=== PATIENT | male | born 1965 | race Two or more races ===

== ENCOUNTER 2018-06-08 08:05 | Inpatient (IN) | payer OTHER ==
--- NOTE | 2018-06-08 08:18 | PDOC ---
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 He denies any headache, blurred vision, numbness, weakness or any other focal neurological deficits. He reports being unable to come in earlier due to insurance issues. Denies any fevers or chills. - Physicial Exam PE: 06/08/18 10:27 GENERAL: Awake, alert, and fully oriented, in no acute distress HEAD: No signs of trauma EYES: PERRLA, EOMI, sclera anicteric, conjunctiva clear ENT: Auricles normal inspection, hearing grossly normal, nares patent, oropharynx clear without exudates. Moist mucosa NECK: Normal ROM, supple, no lymphadenopathy, JVD, or masses LUNGS: Breath sounds equal, clear to auscultation bilaterally. No wheezes, and no crackles HEART: Regular rate and rhythm, normal S1 and S2, no murmurs, rubs or gallops ABDOMEN: Soft, nontender, normoactive bowel sounds. No guarding, no rebound. No masses EXTREMITIES: Normal range of motion, no edema. No clubbing or cyanosis. No cords, erythema, or tenderness NEUROLOGICAL: Slightly slurred speech, slight left sided facial droop, 5/5 strength bilaterally. Normal gait. SKIN: Warm, Dry, normal turgor, no rashes - Medical Decision Making 06/08/18 10:30 Documentation prepared by Elvira Bray, acting as medical office asst for Gladis Mirza MD. <Elvira Bray - Last Filed: 06/08/18 10:26> - Medical Decision Making 06/11/18 09:06 Pt presents to the ED complaining of 5 days of slurred speech and very mild L facial droop. Denies other neurologic symptoms. Symptoms are concerning for CVA. Given the duration of his symptoms, he is not a candidate for TPA. Will check labs and admit to medicine. <Gladis Mirza - Last Filed: 06/11/18 09:19>
[2018-06-08] MEDS ORDERED: ASPIRIN 325 MG TABLET PO ONE (08:47)
--- NOTE | 2018-06-08 08:47 | PDOC ---
History of Present Illness - General Chief Complaint: CVA/TIA Stated Complaint: DIZZINESS/NUMBNESS ON FACE Time Seen by Provider: 06/08/18 08:17 History Source: Patient - History of Present Illness Initial Comments: 06/08/18 08:50 Patient is a 52 year old male with a PMH of untreated DM and HTN who presents with a 5 day h/o slurred speech. 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 Also c/o L sided facial fullness. Denies any head trauma as well as mental status changes, visual changes, difficulty ambulating. Notes he was evaluated at a health clinic five years previous and told he had DM and HTN but is not taking medications because he cannot afford them. Came to the ED this morning because patient's son expressed concern he might have had a stroke. Smoked 5 cigarettes daily since age 10. NKDA Surgical: denies Social: 5 cigarettes daily for 40+ years, denies alcohol, denies recreational drugs PMD: None Past History - Past Medical History Allergies/Adverse Reactions: Allergies Allergy/AdvReac Type Severity Reaction Status Date / Time No Known Allergies Allergy Verified 06/08/18 08:43 Home Medications: Ambulatory Orders NK [No Known Home Medication] 06/08/18 COPD: No Diabetes: Yes HTN: Yes - Suicide/Smoking/Psychosocial Hx Smoking History: Current every day smoker Number of Cigarettes Smoked Daily: 5 Information on smoking cessation initiated: Yes 'Breaking Loose' booklet given: 06/08/18 Hx Alcohol Use: No Drug/Substance Use Hx: No Substance Use Type: None Review of Systems - Review of Systems Constitutional: No: Chills, Fever HEENTM: No: Blurred Vision, Double Vision Respiratory: No: Cough, Shortness of Breath, Stridor, Wheezing, Hemoptysis Cardiac (ROS): No: Chest Pain, Lightheadedness, Palpitations, Syncope, Chest Tightness ABD/GI: No: Constipated, Diarrhea, Nausea, Rectal Bleeding, Vomiting : No: Burning, Dysuria Neurological: Yes: Other (5 day h/o slurred speech). No: Numbness, Tingling, Tremors, Weakness, Unsteady Gait *Physical Exam - Vital Signs Last Vital Signs Temp Pulse Resp BP Pulse Ox 97.9 F 92 H 16 164/94 98 06/08/18 08:08 06/08/18 08:08 06/08/18 08:08 06/08/18 08:08 06/08/18 08:08 - Physical Exam General Appearance: Yes: Nourished, Appropriately Dressed HEENT: positive: EOMI, KEYON Neck: positive: Trachea midline, Supple Respiratory/Chest: positive: Lungs Clear, Normal Breath Sounds. negative: Rapid RR, Crackles, Rales, Rhonchi, Wheezing Cardiovascular: positive: S1, S2. negative: Edema, JVD Vascular Pulses: Dorsalis-Pedis (R): 2+, Doralis-Pedis (L): 2+ Gastrointestinal/Abdominal: positive: Normal Bowel Sounds, Soft Musculoskeletal: negative: CVA Tenderness (R), CVA Tenderness (L) Extremity: positive: Normal Capillary Refill, Normal Inspection Integumentary: positive: Normal Color, Dry, Warm Neurologic: positive: optical effects line up person II-XII NML intact, Fully Oriented, Alert, Motor Strength 5/5, Finger to Nose (normal). negative: Facial Droop, Confused, Disoriented ED Treatment Course - LABORATORY CBC & Chemistry Diagram: 06/08/18 10:00 06/08/18 10:00 Medical Decision Making - Medical Decision Making 06/08/18 08:54 52 year old male with 5 day h/o slurred speech. VS unremarkable. NIHSS 1. Non tPA candidate given symptom duration. ED Stroke order set initiated. ASA administered. Head CT pending. 06/08/18 10:[address] negative for acute infarct. Patient reassessed @ bedside- persistent slurred speech. VS stable. Neuro paged. 06/08/18 12:05 Case d/w Dr. Miranda (Neurology) - agrees with admission and recommends MRI. Will evaluate patient. Patient admitted to hospitalist inpatient medicine service. SW consult pending. Will continue to monitor including Q1 VS. 06/08/18 12:16 Case d/w social work. Will come evaluate patient. Patient and patient's counseled on plan of care. *DC/Admit/Observation/Transfer Diagnosis at time of Disposition: Slurred speech - Referrals - Patient Instructions - Post Discharge Activity
--- NOTE | 2018-06-08 08:50 | PDOC ---
NIH Stroke Scale - Last Known Well Date/Time & Onset Date Last Known Well: 06/04/18 Time Last Known Well: 08:00 - Initial Evaluation Level of consciousness: Alert Ask patient the month and their age: Answers both correctly Ask patient to open & close eyes; make fist and let go: Obeys both correctly Best gaze (horizontal eye movement): Normal Visual field testing: No visual field loss Facial paresis (Show teeth/raise eyebrows/close eyes tight): Normal symmetrical movement Motor Function: Left Arm: Normal Motor Function: Right Arm: Normal (extends arm 90 (or 45) degrees for 10 seconds without drift Motor Function: Left Leg: Normal (extends leg 30 degrees for 5 seconds without drift) Motor Function: Right Leg: Normal (extends leg 30 degrees for 5 seconds without drift) Limb Ataxia: No ataxia Sensory(Use pinprick test arms,legs,trunk,face/side to side): Normal Best language (Describe picture, name items, read sentences): No Aphasia Dysarthria (read several words): Mild to moderate slurring of words Extinction and Inattention: No abnormality - Total Score NIH Stroke Scale Score: 1
[2018-06-08] MEDS ORDERED: ASPIRIN 81 MG CHEWABLE TABLETS ONE ×2 (09:27→09:43)
[2018-06-08] MEDS: SODIUM CHLORIDE 1,000 ML IV SCH (09:34)
[2018-06-08 10:17] LABS: BASO % 0.7 % (0-2.0); EOS % 2.5 % (0-4.5); HEMATOCRIT 46.3 % (35.4-49); HEMOGLOBIN 15.1 GM/dL (11.7-16.9); LYMPH % 51.2 % (8-40); MCH 29.2 pg (25.7-33.7); MCHC 32.6 g/dl (32.0-35.9); MEAN CELL VOLUME 89.6 fl (80-96); MEAN PLT VOLUME 10.1 fl (7.5-11.1); MONO % 9.9 % (3.8-10.2); NEUT % 35.7 % (42.8-82.8); PLATELET COUNT 191 K/MM3 (134-434); RBC 5.17 M/mm3 (4.00-5.60); WHITE BLOOD COUNT 4.8 K/mm3 (4.0-10.0)
[2018-06-08 10:18] LABS: URINE APPEARANCE CLEAR; URINE BILIRUBIN NEGATIVE (<2.0 mg/dL); URINE COLOR STRAW; URINE GLUCOSE (UA) 2+ (NEGATIVE); URINE KETONE NEGATIVE (NEGATIVE); URINE LEUK ESTERASE NEGATIVE (NEGATIVE); URINE NITRITE NEGATIVE (NEGATIVE); URINE PROTEIN NEGATIVE (NEGATIVE); URINE UROBILINOGEN NEGATIVE mg/dL (0.2-1.0)
[2018-06-08 10:28] LABS: INR 1.06 (0.83-1.09)
[2018-06-08 10:39] LABS: ANION GAP 5 MMOL/L (8-16); BLOOD UREA NITROGEN 10 mg/dL (7-18); CALCIUM 9.4 mg/dL (8.5-10.1); CHLORIDE 102 mmol/L (98-107); CHOLESTEROL 238 mg/dL (50-200); CO2 30 mmol/L (21-32); GLUCOSE,RANDOM 206 mg/dL (74-106); POTASSIUM 5.3 mmol/L (3.5-5.1); SGOT/AST 45 U/L (15-37); SGPT/ALT 63 U/L (12-78); SODIUM 137 mmol/L (136-145)
[2018-06-08 10:41] LABS: BILIRUBIN,TOTAL 0.3 mg/dL (0.2-1.0); HDL CHOLESTEROL 68 mg/dL (40-60); TOT PROT 8.4 g/dl (6.4-8.2); TRIGLYCERIDES 96 mg/dL (35-160)
[2018-06-08 10:42] LABS: ALK PHOS 90 U/L (45-117)
--- NOTE | 2018-06-08 13:03 | HP ---
CHIEF COMPLAINT: slurred speech, left arm weakness for 5 days PCP: none HISTORY OF PRESENT ILLNESS: Patient is a 52 year old male with a significant past medical history of hypertension, diabetes and smoker. He is currently not taking any medications secondary to lack of insurance. He does not have a primary care physician. He presents to the ED with his for c/o of slurred speech, left arm weakness, left facial/neck numbness than began 5 days ago and continued through today. Patient and did not seek immediate medical attention as they are uninsured and only came to the hospital on the advice of their son who noted that patient was much weaker. at the bedside and reported that patient had a recent abscess on his left cheek that began 1 week ago and both her and patient thought that the slurred speech could be due to this possible abscess. However, she noted that since last Sunday he became much weaker, fatigued. Patient does not have any teeth nor dentures and did not seek any dental follow up. He denies any headache, blurred vision, numbness, or chest pain. He reports being unable to come in earlier due to insurance issues. Denies any fevers or chills. He feels as though his left arm is weaker when compared to the right. ER course was notable for: (1) elevated BP (2) ekg nsr (3) head ct negative for acute process (4) asa in ed (5) elevated lipid panel Recent Travel: denies PAST MEDICAL HISTORY: diabetes, htn, smoker PAST SURGICAL HISTORY: denies Social History: Smoking: yes daily Alcohol: occasional Drugs: denies Family History: Allergies No Known Allergies Allergy (Verified 06/08/18 08:43) HOME MEDICATIONS: Home Medications Medication Instructions Recorded NK [No Known Home Medication] 06/08/18 PHYSICAL EXAMINATION Vital Signs - 24 hr 06/08/18 06/08/18 08:08 12:19 Temperature 97.9 F Pulse Rate 92 H Pulse Rate [ 88 Apical] Respiratory 16 18 Rate Blood Pressure 164/94 Blood Pressure 158/88 [Left Arm] O2 Sat by Pulse 98 99 Oximetry (%) GENERAL: Awake, alert, and fully oriented, in no acute distress. HEAD: Normal with no signs of trauma. EYES: right pupil less reactive, left pupil reactive to light EARS, NOSE, THROAT: Ears normal, nares patent, oropharynx clear without exudates. Moist mucous membranes. NECK: Normal range of motion, supple without lymphadenopathy, JVD, or masses. LUNGS: Breath sounds equal, clear to auscultation bilaterally. HEART: Regular rate and rhythm, ABDOMEN: Soft, nontender, not distended, normoactive bowel sounds, no guarding, no rebound, no masses. No hepatomegaly or splenomegaly. MUSCULOSKELETAL: Normal range of motion at all joints. No bony deformities or tenderness. No CVA tenderness. UPPER EXTREMITIES: 4/5 left upper ext strength, 5/5 right upper ext strength LOWER EXTREMITIES: No peripheral edema. NEUROLOGICAL: slurred speech, gait not observed PSYCHIATRIC: Cooperative. Good eye contact. Appropriate mood and affect. SKIN: Warm, dry, normal turgor, no rashes or lesions noted, normal capillary refill. Laboratory Results - last 24 hr 06/08/18 06/08/18 06/08/18 10:00 10:00 10:00 WBC 4.8 RBC 5.17 Hgb 15.1 Hct 46.3 MCV 89.6 MCH 29.2 MCHC 32.6 RDW 14.0 Plt Count 191 MPV 10.1 Absolute Neuts (auto) 1.7 Neutrophils % 35.7 L Lymphocytes % 51.2 H Monocytes % 9.9 Eosinophils % 2.5 Basophils % 0.7 Nucleated RBC % 0 PT with INR 12.00 INR 1.06 Sodium 137 Potassium 5.3 H Chloride 102 Carbon Dioxide 30 Anion Gap 5 L BUN 10 Creatinine 1.0 Creat Clearance w eGFR > 60 POC Glucometer Random Glucose 206 H Calcium 9.4 Total Bilirubin 0.3 AST 45 H ALT 63 Alkaline Phosphatase 90 Creatine Kinase 78 Troponin I < 0.02 Total Protein 8.4 H Albumin 4.0 Triglycerides 96 Cholesterol 238 H Total LDL Cholesterol 159 H HDL Cholesterol 68 H Urine Color Urine Appearance Urine pH Ur Specific [place] Urine Protein Urine Glucose (UA) Urine Ketones Urine Blood Urine Nitrite Urine Bilirubin Urine Urobilinogen Ur Leukocyte Esterase Blood Type Antibody Screen 06/08/18 06/08/18 06/08/18 10:00 10:08 10:18 WBC RBC Hgb Hct MCV MCH MCHC RDW Plt Count MPV Absolute Neuts (auto) Neutrophils % Lymphocytes % Monocytes % Eosinophils % Basophils % Nucleated RBC % PT with INR INR Sodium Potassium Chloride Carbon Dioxide Anion Gap BUN Creatinine Creat Clearance w eGFR POC Glucometer [id number] Random Glucose Calcium Total Bilirubin AST ALT Alkaline Phosphatase Creatine Kinase Troponin I Total Protein Albumin Triglycerides Cholesterol Total LDL Cholesterol HDL Cholesterol Urine Color Straw Urine Appearance Clear Urine pH 5.0 Ur Specific [place] 1.006 Urine Protein Negative Urine Glucose (UA) 2+ H Urine Ketones Negative Urine Blood Negative Urine Nitrite Negative Urine Bilirubin Negative Urine Urobilinogen Negative Ur Leukocyte Esterase Negative Blood Type O POSITIVE Antibody Screen Negative ASSESSMENT/PLAN: Patient is a 52 year old male with a significant past medical history of hypertension, diabetes and smoker. He is currently not taking any medications secondary to lack of insurance. He does not have a primary care physician. He presents to the ED with his for c/o of slurred speech, left arm weakness, left facial/neck numbness than began 5 days ago and continued through today. Patient and did not seek immediate medical attention as they are uninsured and only came to the hospital on the advice of their son who noted that patient was much weaker. Neuro: Rule out Stroke: Head CT done in the ED negative for acute process. Brain MRi ordered. Carotid and echo ordered and pending. Given ASA in ED, will continue ASA 81mg daily. Started on Lipitor 80mg @ hs. passed bedside swallow test, will order soft diet. Physical therapy requested. Neuro following. Card: Hypertension: elevated on admission, on no home meds. Started Toprol XL BID. Echo ordered . Monitor on tele. Cardiology consulted. Endocrine: Diabetes mellitus: Novolg SS, BGMs. fen tolerating PO monitor electrolytes soft diet prophy scds Visit type - Emergency Visit Emergency Visit: Yes ED Registration Date: 06/08/18 Care time: The patient presented to the Emergency Department on the above date and was hospitalized for further evaluation of their emergent condition. - New Patient This patient is new to me today: Yes Date on this admission: 06/08/18 - Critical Care Critical Care patient: No Hospitalist Screening - Colonoscopy Questionnaire Colonoscopy Questionnaire: Colonoscopy Questionnaire - Patient: 50 - 75 years old and never had a screening colonoscopy: Unknown History of colon or rectal polyps, or CA: Unknown History of IBD, Crohn's disease or UC: Unknown History of abdominal radiation therapy as a child: Unknown - Relative: 1 with colon or rectal CA, or polyps at age 60 or younger: Unknown Colon or rectal CA diagnosed at age 45 or younger: Unknown Multiple relatives with colon or rectal CA: Unknown - Outcome: Screening Result: Negative Screen
[2018-06-08 13:54] VITALS: BMI 25.7
[2018-06-08] MEDS: metoPROLOL SUCCINATE 25 MG TAB.SR.24H (FP) PO SCH ×2 (17:09→22:11)
[2018-06-08] MEDS: INSULIN SLIDING SCALE (NOVOLOG) 1 VIAL SQ SCH ×2 (17:12→22:11)
--- NOTE | 2018-06-08 18:17 | CON.NEURO ---
Consult - Alcohol/Substance Use Hx Alcohol Use: No - Smoking History Smoking history: Current every day smoker Have you smoked in the past 12 months: Yes Aproximately how many cigarettes per day: 5 Home Medications - Allergies Allergies/Adverse Reactions: Allergies Allergy/AdvReac Type Severity Reaction Status Date / Time No Known Allergies Allergy Verified 06/08/18 08:43 - Home Medications Home Medications: Ambulatory Orders NK [No Known Home Medication] 06/08/18 Physical Exam-Neuro Vital Signs: Vital Signs Temperature 98.2 F 06/08/18 13:49 Pulse Rate 81 06/08/18 13:49 Respiratory Rate 18 06/08/18 13:55 Blood Pressure 182/96 06/08/18 13:49 O2 Sat by Pulse Oximetry (%) 99 06/08/18 13:55 Labs: CBC, BMP 06/08/18 10:00 06/08/18 10:00 INR, PTT INR 1.06 (0.83-1.09) 06/08/18 10:00 Assessment/Plan cc slurring of speech HPI 52 year old male history of HTN, DM , SMOKER. He has not been taking medication . He has slurring of speech for five days. Mri showed right mca stroke. He is smoker. He was not takign any apsirin or statin at home. He denies any arm or leg weakness, no headhace, no seizure. PMH as above, SH NONE NKDA Social History , ROS FH reviewed in chart HOME MEDICATIONS: Home Medications Medication Instructions Recorded NK [No Known Home Medication] 06/08/18 Neurological Examination Alert oriented x 3 speech is dysarthric ( he do not have any teeth but as per family his speech is different now) left facial droopiness, eomi, pupils reactive 5/5 all ext no ataxia , FTN , HTS is normal sensation is normal ct head no acute findings MRI of brain showed there is right mca stroke Assessment- Right mca stroke, risk factor DM,HTN, SMOKER. Plan start aspirin and statin follow official report of mri speech therapy ( ordered) carotid ultrasound stroke education and smoking cessation Appreciate cardiology consult Thanking you so much Brigido Miranda MD
[2018-06-08] MEDS: ASPIRIN COATED 81 MG TABLET.EC PO SCH (18:39)
--- NOTE | 2018-06-08 18:54 | EKG ---
Test Reason : Blood Pressure : / mmHG Vent. Rate : 090 BPM Atrial Rate : 090 BPM P-R Int : 144 ms QRS Dur : 100 ms QT Int : 380 ms P-R-T Axes : 031 -14 -04 degrees QTc Int : 464 ms NORMAL SINUS RHYTHM INFERIOR INFARCT , AGE UNDETERMINED ABNORMAL ECG WHEN COMPARED WITH ECG OF 01-OCT-2010 09:08, INFERIOR INFARCT IS NOW PRESENT T WAVE INVERSION NOW EVIDENT IN INFERIOR LEADS NONSPECIFIC T WAVE ABNORMALITY NOW EVIDENT IN LATERAL LEADS Confirmed by FELISHA BENZ MD ([id number]) on 06/08/2018 6:54:22 PM Referred By: Confirmed By:FELISHA BENZ MD
[2018-06-08] MEDS ORDERED: INSULIN (NOVOLOG) ASPART 100 UNITS/ML 10ML VIAL ONE (22:05)
[2018-06-08] MEDS: ATORVASTATIN CA 80 MG TABLET (FP) PO SCH (22:10)
[2018-06-09] MEDS: SODIUM CHLORIDE 1,000 ML IV SCH ×2 (06:02→10:01)
[2018-06-09] MEDS: INSULIN SLIDING SCALE (NOVOLOG) 1 VIAL SQ SCH ×4 (06:02→21:51)
--- NOTE | 2018-06-09 07:38 | PN ---
Progress Note (short form) - Note Progress Note: 52 year old male history of HTN, DM , SMOKER. He has not been taking medication . He has slurring of speech for five days prior to hospital admission. Mri showed right mca stroke. He is smoker. He was not takign any apsirin or statin at home. He denies any arm or leg weakness, no headhace, no seizure. PMH as above, SH NONE NKDA Social History , ROS FH reviewed in chart HOME MEDICATIONS: Home Medications Medication Instructions Recorded NK [No Known Home Medication] 06/08/18 Neurological Examination Alert oriented x 3 speech is dysarthric ( he do not have any teeth but as per family his speech is different now) left facial droopiness, eomi, pupils reactive 5/5 all ext no ataxia , FTN , HTS is normal sensation is normal ct head no acute findings MRI of brain showed multiple right temporal and parietal lobe infarct. Assessment- Right parietal and temporal lobe infarct, seems to be one stroke as there is only one clinical event , risk factor DM,HTN, SMOKER. Plan 1.continue aspirin and statin 2. I would do mra of brain , follow up on carotid ultrasound , echo and cardiology consult 3.awaiting speech consult 4.stroke education and smoking cessation Thanking you so much Brigido Miranda MD
[2018-06-09] MEDS: ASPIRIN COATED 81 MG TABLET.EC PO SCH (10:01)
[2018-06-09] MEDS: metoPROLOL SUCCINATE 25 MG TAB.SR.24H (FP) PO SCH (10:01)
--- NOTE | 2018-06-09 10:28 | PN ---
Progress Note (short form) - Note Progress Note: Chief Complaint: Events noted, notes reviewed, left facial weakness persists, patient denies any chest pain or dyspnea History of Present Illness: Seen and examined on telemetry. Full consult dictated Medications: Current Medications Aspirin (Ecotrin -) 81 mg PO DAILY [facility] Last Admin: 06/09/18 10:01 Dose: 81 mg Atorvastatin Calcium (Lipitor -) 80 mg PO HS [facility] Last Admin: 06/08/18 22:10 Dose: 80 mg Sodium Chloride (Normal Saline -) 1,000 mls @ 42 mls/hr IV ASDIR [facility] Last Admin: 06/09/18 10:01 Dose: 42 mls/hr Insulin Aspart (Novolog Vial Sliding Scale -) 1 vial SQ ACHS [facility]; Protocol Last Admin: 06/09/18 06:02 Dose: 2 unit Metoprolol Succinate (Toprol Xl -) 25 mg PO BID [facility] Last Admin: 06/09/18 10:01 Dose: 25 mg Review of Systems - Review of Systems Constitutional: denies: Chills or Fever Cardiovascular: as noted above Gastrointestinal: denies: Nausea, Vomiting, Diarrhea, Constipation or Abdominal Pain Genitourinary: No symptoms reported Neurological: As noted above Vital Signs: Last Vital Signs Temp Pulse Resp BP Pulse Ox 98.3 F 63 18 141/78 97 06/09/18 10:00 06/09/18 10:00 06/09/18 10:00 06/09/18 10:00 06/08/18 21:00 Intake & Output 06/06/18 06/07/18 06/08/18 06/09/18 23:59 23:59 23:59 23:59 Intake Total 970 294 Balance 970 294 Weight 174 lb 4 oz Neck: Supple Negative JVD No Bruit Respiratory: Clear to A&P Cardiovascular: S1 S2 Regular Rate and Rhythm Gastrointestinal: Soft Benign Normal Bowel Sounds Ext: Negative Edema Labs: CBC, BMP 06/08/18 10:00 06/08/18 10:00 Troponin, BNP 06/08/18 06/08/18 10:00 19:55 Troponin I < 0.02 < 0.02 Hepatic Panel Total Bilirubin 0.3 mg/dL (0.2-1.0) 06/08/18 10:00 AST 45 U/L (15-37) H 06/08/18 10:00 ALT 63 U/L (12-78) 06/08/18 10:00 Alkaline Phosphatase 90 U/L (45-117) 06/08/18 10:00 Albumin 4.0 g/dl (3.4-5.0) 06/08/18 10:00 INR, PTT INR 1.06 (0.83-1.09) 06/08/18 10:00 Assessment/Plan ASSESSMENT: 1. Clinical presentation and MRI finding consistent with acute stroke/CVA, right parietal and temporal lobe infarct 2. Probable CAD abnormal EKG with no history of ACS or RI angina pectoris 3. Probable diastolic LV dysfunction with clinical class 0 NYHA classification LV failure 4. HTN, non compliant with therapy administration 5. DM, non compliant with therapy administration 6. Hypercholestrolemia, non compliant with therapy administration 7. Carotid atherosclerosis 8. Tobacco and alcohol abuse PLAN: 1. Continue B-Blockers 2. Add ACEI or ARBS unless contraindicated 3. Continue statin therapy/high dose Lipitor 4. Continue ASA 5. Await brain MRA report 6. Echocardiography for evaluation of LV size and function 7. Additional cardiovascular evaluation is to be recommended pending completion of testing including SUNDAY or extended ambulatory monitoring Patricia Nowak M.D.
[2018-06-09 11:01] LABS: BASO % 0.6 % (0-2.0); HEMATOCRIT 45.2 % (35.4-49); HEMOGLOBIN 14.4 GM/dL (11.7-16.9); LYMPH % 28.9 % (8-40); MCH 28.6 pg (25.7-33.7); MCHC 31.9 g/dl (32.0-35.9); MEAN CELL VOLUME 89.8 fl (80-96); MEAN PLT VOLUME 10.1 fl (7.5-11.1); MONO % 8.2 % (3.8-10.2); NEUT % 60.3 % (42.8-82.8); PLATELET COUNT 171 K/MM3 (134-434); RBC 5.04 M/mm3 (4.00-5.60); RDW 13.8 % (11.9-15.9); WHITE BLOOD COUNT 6.9 K/mm3 (4.0-10.0)
[2018-06-09 11:06] LABS: ALBUMIN 3.4 g/dl (3.4-5.0); ANION GAP 7 MMOL/L (8-16); BLOOD UREA NITROGEN 11 mg/dL (7-18); CALCIUM 9.1 mg/dL (8.5-10.1); CHLORIDE 104 mmol/L (98-107); CO2 28 mmol/L (21-32); GLUCOSE,RANDOM 203 mg/dL (74-106); POTASSIUM 4.5 mmol/L (3.5-5.1); SODIUM 139 mmol/L (136-145)
[2018-06-09 11:10] LABS: BILIRUBIN,TOTAL 0.7 mg/dL (0.2-1.0); CHOLESTEROL 222 mg/dL (50-200); CREATININE 0.9 mg/dL (0.7-1.3); SGOT/AST 30 U/L (15-37); SGPT/ALT 47 U/L (12-78); TOT PROT 7.3 g/dl (6.4-8.2); TRIGLYCERIDES 96 mg/dL (35-160)
[2018-06-09 11:11] LABS: ALK PHOS 79 U/L (45-117); HDL CHOLESTEROL 59 mg/dL (40-60)
[2018-06-09] MEDS: LOSARTAN POTASSIUM 25 MG TABLET PO SCH (11:23)
--- NOTE | 2018-06-09 11:37 | CONS ---
DATE OF CONSULTATION: 06/09/2018 CONSULTATION REQUESTED BY: Hospitalist CHIEF COMPLAINT: Slurred speech, left-sided facial weakness; cardiovascular evaluation. This is a 52-year-old male of [place] descent of [place] ancestry who was in usual state of health until presenting to [facility] with slurred speech, which has been noted for the last several days. Patient has known history of hypertensive cardiovascular disease, diabetes mellitus, hypercholesterolemia, and tobacco abuse. The patient has not been complaint with medical therapy administration related to insurance issues. Patient did not report any associated additional focal neurological deficits. The patient does not report any prior history of coronary artery disease or congestive heart failure, although he was noted to have an abnormal electrocardiogram on evaluation in the emergency room. The patient denies any chest discomfort. The patient denies any dyspnea, orthopnea, paroxysmal nocturnal dyspnea, or peripheral edema. The patient denies any palpitations, dizziness, lightheadedness, or syncope. The patient denies any fatigue or tiredness. The patient is a smoker and, in addition, admits to heavy alcohol intake. PAST MEDICAL HISTORY: Hypertensive cardiovascular disease, diabetes mellitus, hypercholesterolemia, currently on no medical therapy, poor compliance with medical therapy administration and medical followup; states lack of insurance. PAST SURGICAL HISTORY: None. SOCIAL HISTORY: Smoker and admits to heavy alcohol intake. FAMILY HISTORY: Positive for coronary artery disease. ALLERGIES: None reported. MEDICAL THERAPY AT HOME: None. MEDICAL THERAPY CURRENTLY: Aspirin 81 mg once a day; Lipitor 80 mg once a day; insulin coverage; Toprol-XL 25 mg twice daily. REVIEW OF SYSTEMS: Head/Neck: He denies headache, photophobia, blurring of vision. Respiratory: No cough or sputum production. Cardiovascular: As noted above. Gastrointestinal: He denies nausea, vomiting, diarrhea, abdominal discomfort. Genitourinary: No symptoms reported. Musculoskeletal: No symptoms reported. PHYSICAL EXAMINATION: Vital Signs: Blood pressure is 141/78 mmHg, pulse rate is 63 beats/min. Head/Neck: Pupils are equal and reactive to light and accommodation. Extraocular muscles are intact. Anicteric sclerae. Negative JVD. No bruit appreciated. Chest: Clear to auscultation and percussion. Cardiovascular: S1, S2, regular. No murmur, clicks, or gallops. Abdomen: Soft, benign, normoactive bowel sounds. Extremities: Negative edema. Intact distal pulses. No calf tenderness. Electrocardiogram reveals sinus rhythm. Cannot exclude inferior wall myocardial infarction, age undetermined. Chest x-ray report was noted. CT scan of the head report was noted. MRI of the brain report was noted. Carotid Doppler studies revealed mild atherosclerotic plaque bilaterally. CBC revealed a white cell count of 4.8, hemoglobin of 15.1, platelet count 191. Basic metabolic profile reveals sodium 137, potassium 5.3, BUN of 10, creatinine 1.0, glucose 206. Troponin less than 0.02. AST 45, ALT 63. ASSESSMENT: 1. Clinical presentation and MRI findings consistent with acute stroke, cerebrovascular accident, right parietal and temporal lobe infarct. 2. Probable coronary artery disease, abnormal EKG with no history of acute coronary syndrome or myocardial infarction, angina pectoris. 3. Probable diastolic left ventricular dysfunction with clinical class zero [place] Heart [employer] Classification left ventricular failure. 4. Hypertensive cardiovascular disease, noncompliant with therapy administration. 5. Diabetes mellitus, noncompliant with therapy administration. 6. Hypercholesterolemia, noncompliant with therapy administration. 7. Carotid atherosclerosis. 8. History of tobacco and alcohol abuse. RECOMMENDATIONS: 1. Continuation of beta eduin therapy. 2. Addition of JACQUIE inhibitors or angiotensin receptor eduin therapy, unless contraindicated. 3. Continuation of statin therapy, high-dose Lipitor. 4. Continuation of aspirin. 5. Await brain MRA report, performed earlier today. 6. Echocardiography for evaluation of left ventricular size and systolic function, considering the above-noted abnormal EKG. 7. Additional cardiovascular evaluation is to be recommended, pending completion of above testing, including possible SUNDAY or extended ambulatory monitoring. Thank you for the kind referral. SLICK ADEN M.D. [id number]
--- NOTE | 2018-06-09 14:20 | PN ---
Physical Exam: SUBJECTIVE: Patient seen and examined at the bedside. Denies any difficulty with soft diet, or swallowing. Ambulating to bathroom. OBJECTIVE: brain mri with mra pending Vital Signs Period Temp Pulse Resp BP Sys/Dewey Pulse Ox Last 24 Hr 98.1 F-98.8 F 63-74 18-20 141-156/69-86 97-98 GENERAL: Awake, alert, and fully oriented, in no acute distress. HEAD: Normal with no signs of trauma. EYES: right pupil less reactive, left pupil reactive to light EARS, NOSE, THROAT: Ears normal, nares patent, oropharynx clear without exudates. Moist mucous membranes. NECK: Normal range of motion, supple without lymphadenopathy, JVD, or masses. LUNGS: Breath sounds equal, clear to auscultation bilaterally. HEART: Regular rate and rhythm, ABDOMEN: Soft, nontender, not distended, normoactive bowel sounds, no guarding, no rebound, no masses. No hepatomegaly or splenomegaly. MUSCULOSKELETAL: Normal range of motion at all joints. No bony deformities or tenderness. No CVA tenderness. UPPER EXTREMITIES: 4/5 left upper ext strength, 5/5 right upper ext strength LOWER EXTREMITIES: No peripheral edema. NEUROLOGICAL: slurred speech, gait not observed PSYCHIATRIC: Cooperative. Good eye contact. Appropriate mood and affect. SKIN: Warm, dry, normal turgor, no rashes or lesions noted, normal capillary refill. Laboratory Results - last 24 hr 06/08/18 06/08/18 06/08/18 13:45 17:08 19:55 WBC RBC Hgb Hct MCV MCH MCHC RDW Plt Count MPV Absolute Neuts (auto) Neutrophils % Lymphocytes % Monocytes % Eosinophils % Basophils % Nucleated RBC % Sodium Potassium Chloride Carbon Dioxide Anion Gap BUN Creatinine Creat Clearance w eGFR POC Glucometer 183 Random Glucose Hemoglobin A1c % Calcium Magnesium Total Bilirubin AST ALT Alkaline Phosphatase Troponin I < 0.02 Total Protein Albumin Triglycerides Cholesterol Total LDL Cholesterol HDL Cholesterol Blood Type O POSITIVE 06/08/18 06/09/18 06/09/18 22:10 06:01 09:30 WBC RBC Hgb Hct MCV MCH MCHC RDW Plt Count MPV Absolute Neuts (auto) Neutrophils % Lymphocytes % Monocytes % Eosinophils % Basophils % Nucleated RBC % Sodium Potassium Chloride Carbon Dioxide Anion Gap BUN Creatinine Creat Clearance w eGFR POC Glucometer 150 181 Random Glucose Hemoglobin A1c % 8.6 H Calcium Magnesium Total Bilirubin AST ALT Alkaline Phosphatase Troponin I Total Protein Albumin Triglycerides Cholesterol Total LDL Cholesterol HDL Cholesterol Blood Type 06/09/18 06/09/18 06/09/18 10:00 10:00 11:21 WBC 6.9 RBC 5.04 Hgb 14.4 Hct 45.2 MCV 89.8 MCH 28.6 MCHC 31.9 L RDW 13.8 Plt Count 171 MPV 10.1 Absolute Neuts (auto) 4.2 Neutrophils % 60.3 D Lymphocytes % 28.9 D Monocytes % 8.2 Eosinophils % 2.0 Basophils % 0.6 Nucleated RBC % 0 Sodium 139 Potassium 4.5 Chloride 104 Carbon Dioxide 28 Anion Gap 7 L BUN 11 Creatinine 0.9 Creat Clearance w eGFR > 60 POC Glucometer 212 Random Glucose 203 H Hemoglobin A1c % Calcium 9.1 Magnesium 2.0 Total Bilirubin 0.7 AST 30 D ALT 47 D Alkaline Phosphatase 79 D Troponin I < 0.02 Total Protein 7.3 Albumin 3.4 Triglycerides 96 Cholesterol 222 H Total LDL Cholesterol 152 H HDL Cholesterol 59 Blood Type Active Medications Generic Name Dose Route Start Last Admin Trade Name Gunnarq PRN Reason Stop Dose Admin Aspirin 81 mg 06/08/18 18:15 06/09/18 10:01 Ecotrin - PO 81 mg DAILY RONNA Administration Atorvastatin Calcium 80 mg 06/08/18 22:00 06/08/18 22:10 Lipitor - PO 80 mg HS RONNA Administration Insulin Aspart 1 vial 06/08/18 16:30 06/09/18 11:23 Novolog Vial Sliding Scale - SQ 4 unit ACHS RONNA Administration Protocol Losartan Potassium 25 mg 06/09/18 11:00 06/09/18 11:23 Cozaar - PO 25 mg DAILY RONNA Administration Metoprolol Succinate 50 mg 06/10/18 10:00 Toprol Xl - PO DAILY RONNA ASSESSMENT/PLAN: Patient is a 52 year old male with a significant past medical history of hypertension, diabetes and smoker. He is currently not taking any medications secondary to lack of insurance. He does not have a primary care physician. He presents to the ED with his for c/o of slurred speech, left arm weakness, left facial/neck numbness than began 5 days ago and continued through today. Patient and did not seek immediate medical attention as they are uninsured and only came to the hospital on the advice of their son who noted that patient was much weaker. Imaging: -head ct 8/25: negative for acute process -brain mri 06/08: 1. multiple small acute non hemorrhagic infarctions right temporal and right parietal lobes with no evidence of underlying neoplasm. 2. no evidence of acute intracerebral hemorrhage, subdural fluid collection or hyrdrocephalus. 3. few benign non specific are of gliosis in the white matter of both cerebral hemispheres in the perventicular distribution which may be sequela of demyelination or old small vessel infarcts. -carotid doppler: no evidence of high grade stenosis or occlusion. mild carotid arterial stenosis less than 50%. Neuro: Stroke, acute Head CT done in the ED negative for acute process. Brain MRI shows multiple small acute non hemorrhagic infarctions in the right temporal and right parietal lobes. Carotid doppler with no evidence of high grade stenosis/ occlusion. On ASA, high dose lipitor. Awaiting bedside swallow test, echo and physical therapy assessment. Brain MRI with MRA pending. Card: Hypertension: elevated on admission, on no home meds. on Toprol XL daily and Cozaar. Echo ordered. Monitor on tele. Cardiology following. Endocrine: Diabetes mellitus: Novolg SS, BGMs. psyche: Currently daily smoker. counseled on cessation, refusing nicotine patch. States he smokes about 1/2 pack per day, sometimes more. Discussed importance of stopping for his health and also cost effectiveness. fen tolerating PO monitor electrolytes soft diet prophy scds Disposition: Pending echo, physical therapy, swallow eval and official read of brain mri/ mra. On discharge will need a follow up clinic appointment as well as have his medications called into to [place] pharmacy that may offer patient a discount as he is paying out of pocket. Visit type - Emergency Visit Emergency Visit: Yes ED Registration Date: 06/08/18 Care time: The patient presented to the Emergency Department on the above date and was hospitalized for further evaluation of their emergent condition. - New Patient This patient is new to me today: No - Critical Care Critical Care patient: No - Discharge Referral Referred to [facility] Med P.C.: No
[2018-06-09] MEDS ORDERED: INSULIN (NOVOLOG) ASPART 100 UNITS/ML 10ML VIAL ONE (21:46)
[2018-06-09] MEDS: ATORVASTATIN CA 80 MG TABLET (FP) PO SCH (21:51)
[2018-06-10] MEDS: INSULIN SLIDING SCALE (NOVOLOG) 1 VIAL SQ SCH ×2 (06:21→12:50)
[2018-06-10] MEDS ORDERED: INSULIN (NOVOLOG) ASPART 100 UNITS/ML 10ML VIAL ONE ×3 (06:25→12:54)
[2018-06-10 07:03] LABS: BASO % 0.7 % (0-2.0); EOS % 2.1 % (0-4.5); HEMATOCRIT 46.4 % (35.4-49); HEMOGLOBIN 14.9 GM/dL (11.7-16.9); LYMPH % 38.8 % (8-40); MCH 28.8 pg (25.7-33.7); MEAN PLT VOLUME 10.2 fl (7.5-11.1); MONO % 9.1 % (3.8-10.2); NEUT % 49.3 % (42.8-82.8); PLATELET COUNT 178 K/MM3 (134-434); RBC 5.15 M/mm3 (4.00-5.60); RDW 14.1 % (11.9-15.9); WHITE BLOOD COUNT 7.9 K/mm3 (4.0-10.0)
[2018-06-10 07:27] LABS: ALBUMIN 3.6 g/dl (3.4-5.0); ANION GAP 9 MMOL/L (8-16); BLOOD UREA NITROGEN 13 mg/dL (7-18); CALCIUM 9.1 mg/dL (8.5-10.1); CHLORIDE 103 mmol/L (98-107); CO2 27 mmol/L (21-32); GLUCOSE,RANDOM 185 mg/dL (74-106); POTASSIUM 4.3 mmol/L (3.5-5.1); SGPT/ALT 44 U/L (12-78); SODIUM 139 mmol/L (136-145)
[2018-06-10 07:30] LABS: ALK PHOS 83 U/L (45-117); BILIRUBIN,TOTAL 0.7 mg/dL (0.2-1.0); CREATININE 1.1 mg/dL (0.7-1.3); SGOT/AST 25 U/L (15-37); TOT PROT 7.7 g/dl (6.4-8.2)
--- NOTE | 2018-06-10 07:53 | PN ---
Progress Note (short form) - Note Progress Note: Chief Complaint: Events noted, notes reviewed, left facial weakness persists and slurred speech persists, patient denies any chest pain or dyspnea History of Present Illness: Seen and examined on telemetry. Events noted, notes reviewed, left facial weakness persists and slurred speech persists, patient denies any chest pain or dyspnea Medications: Current Medications Aspirin (Ecotrin -) 81 mg PO DAILY [facility] Last Admin: 06/09/18 10:01 Dose: 81 mg Atorvastatin Calcium (Lipitor -) 80 mg PO HS [facility] Last Admin: 06/09/18 21:51 Dose: 80 mg Insulin Aspart (Novolog Vial Sliding Scale -) 1 vial SQ ACHS [facility]; Protocol Last Admin: 06/10/18 06:21 Dose: 2 unit Losartan Potassium (Cozaar -) 25 mg PO DAILY [facility] Last Admin: 06/09/18 11:23 Dose: 25 mg Metoprolol Succinate (Toprol Xl -) 50 mg PO DAILY [facility] Review of Systems - Review of Systems Constitutional: denies: Chills or Fever Cardiovascular: As noted above Gastrointestinal: denies: Nausea, Vomiting, Diarrhea, Constipation or Abdominal Pain Genitourinary: No symptoms reported Neurological: As noted above Vital Signs: Last Vital Signs Temp Pulse Resp BP Pulse Ox 98.3 F 72 20 145/86 100 06/10/18 06:00 06/10/18 06:00 06/10/18 06:00 06/10/18 06:00 06/09/18 21:00 Intake & Output 06/07/18 06/08/18 06/09/18 06/10/18 23:59 23:59 23:59 23:59 Intake Total 970 1014 Balance 970 1014 Weight 174 lb 4 oz 173 lb Neck: Supple Negative JVD No Bruit Respiratory: Clear to A&P Cardiovascular: S1 S2 Regular Rate and Rhythm Gastrointestinal: Soft Benign Normal Bowel Sounds Ext: Negative Edema Labs: CBC, BMP 06/10/18 06:15 06/10/18 06:15 Hepatic Panel Total Bilirubin 0.7 mg/dL (0.2-1.0) 06/10/18 06:15 AST 25 U/L (15-37) 06/10/18 06:15 ALT 44 U/L (12-78) 06/10/18 06:15 Alkaline Phosphatase 83 U/L (45-117) 06/10/18 06:15 Albumin 3.6 g/dl (3.4-5.0) 06/10/18 06:15 INR, PTT INR 1.06 (0.83-1.09) 06/08/18 10:00 Assessment/Plan ASSESSMENT: 1. Clinical presentation and MRI finding consistent with acute stroke/CVA, right parietal and temporal lobe infarct 2. Probable CAD abnormal EKG with no history of ACS or WA angina pectoris 3. Probable diastolic LV dysfunction with clinical class 0 NYHA classification LV failure 4. HTN, non compliant with therapy administration 5. DM, non compliant with therapy administration 6. Hypercholestrolemia, non compliant with therapy administration 7. Carotid atherosclerosis 8. Tobacco and alcohol abuse PLAN: 1. Continue Toprol XL 2. Continue Cozaar 3. Continue Lipitor 4. Continue ASA 5. Await brain MRA report, still pending 6. Await echocardiography for evaluation of LV size and function 7. As outlined in yesterday's note additional cardiovascular evaluation is to be recommended pending completion of testing including SUNDAY or extended ambulatory monitoring if embolic stroke is a suspect Patricia Nowak M.D.
--- NOTE | 2018-06-10 09:14 | PN ---
Progress Note (short form) - Note Progress Note: 52 year old male history of HTN, DM , SMOKER. He has not been taking medication . He has slurring of speech for five days prior to hospital admission. Mri showed right mca stroke. He is smoker. He was not takign any apsirin or statin at home. He denies any arm or leg weakness, no headhace, no seizure. SUBJECTIVE: He is doing better and speech is better. Neurological Examination Alert oriented x 3 speech is dysarthric ( he do not have any teeth but as per family his speech is different now) left facial droopiness, eomi, pupils reactive 5/5 all ext no ataxia , FTN , HTS is normal sensation is normal ct head no acute findings MRI of brain showed multiple right temporal and parietal lobe infarct. mra of brain is pending. carotid ultrasound was unremarkable Assessment- Right parietal and temporal lobe infarct, , risk factor DM,HTN, SMOKER. Clini Plan 1.continue aspirin and statin 2. cardiology consult appreciated 3. mra report is pending 4.stroke education and smoking cessation, follow up outpatient Thanking you so much Brigido Miranda MD
[2018-06-10] MEDS: LOSARTAN POTASSIUM 25 MG TABLET PO SCH (09:54)
[2018-06-10] MEDS: ASPIRIN COATED 81 MG TABLET.EC PO SCH (09:54)
--- NOTE | 2018-06-10 10:51 | CONSULT ---
Admitting History and Physical - Primary Care Physician PCP: Alva Hyde - Admission History of Present Illness: Patient is a 52 year old male with a significant past medical history of hypertension, diabetes and smoker. Pt presented to the ED with his for c/o of slurred speech, left arm weakness, left facial/neck numbness than began 5 days before admission. Imaging: -head ct 06/08: negative for acute process -brain mri 06/08: 1. multiple small acute non hemorrhagic infarctions right temporal and right parietal lobes with no evidence of underlying neoplasm. 2. no evidence of acute intracerebral hemorrhage, subdural fluid collection or hyrdrocephalus. 3. few benign non specific are of gliosis in the white matter of both cerebral hemispheres in the perventicular distribution which may be sequela of demyelination or old small vessel infarcts. -carotid doppler: no evidence of high grade stenosis or occlusion. mild carotid arterial stenosis less than 50%. Selected Entries 06/09/18 06/09/18 06/09/18 02:00 09:30 10:00 Breakfast 100% Lunch Supper Temperature 98.2 F 98.3 F 06/09/18 06/09/18 06/09/18 13:30 16:30 18:30 Breakfast Lunch 100% Supper 100% Temperature 98.0 F 97.3 F L 06/09/18 06/10/18 06/10/18 20:00 01:54 06:00 Breakfast Lunch Supper Temperature 98.2 F 98.1 F 98.3 F Laboratory Tests 06/10/18 06:15 WBC 7.9 History Source: Patient, Family Member Limitations to Obtaining History: No Limitations - Smoking History Smoking history: Current every day smoker Have you smoked in the past 12 months: Yes Aproximately how many cigarettes per day: 5 - Alcohol/Substance Use Hx Alcohol Use: No - Social History Occupation: security History - Admission Reason For Visit: SLURRED SPEECH - Diagnostics X-ray: Report Reviewed CT Scan: Report Reviewed MRI: Report Reviewed - General Mental Status: Alert and Oriented, Awake and Alert, Able to Follow Commands Attention: Intact Head/Neck Control: WFL - Hearing Hearing: Normal Speech Evaluation - Communication Primary Language: BENGALI Communication: Yes: Dysarthria Oral Expression Ability: Yes: Mild Impairment - Speech Production Able to Make Needs Known: Yes: WNL Intelligibility: Yes: Mildly Impaired - Speech Characteristics Voice Loudness: Normal Voice Pitch: Yes: Normal Voice Phonatory-based Quality: Yes: Normal Nasal Resonance: Normal Articulation: Yes: Imprecise Rate of Speech: Too Fast - Language/Auditory Comprehension Follows: Yes: 2 Stage Simple Commands - Language/Verbal Expression Able to Respond to Simple Queries: Yes: WNL Able to Communicate Wants and Needs: Yes: WNL Functional Communication Status: Yes: WNL - Memory/Perception terminal operations manager Memory: Yes: WNL Short Term Memory: Yes: WNL - Swallow Evaluation/Bedside Assessment Current Nutritional Intake: Soft, Thin Liquids Oral Secretions: Yes: WFL Dentition: Yes: Edentulous Facial Symmetry at Rest: Facial Droop Left Facial Symmetry on Retraction: Symmetrical Facial Movement: Controlled Against Resistance Opening: Normal Against Resistance Closing: Normal Pucker Lips: Normal Lingual Movement: Normal, Symmetric Lingual Speed of Movement: Normal Lingual Movement Strgth Against Opposition: Normal Lingual Movement Characteristics: Normal Velopharyngeal Movement: Normal Laryngeal Elevation: WFL Laryngeal Movement: Able to Palpate Rate of Intake: WFL Bolus Size: WFL Labial Seal: WFL Chewing: WFL Oral Prep Time: WFL A-P Transit: WFL Pocketing: None Timing of Swallow: WFL Coughing/Throat Clear: No Change in Voice: No Recommendations - Speech Evaluation, Impression/Plan Impression: Mild Dysarthria with imprecise articulation. Improved intelligibilty when told to exaggerate pronunciation and slow speech rate. Swallowing intact. 3 oz water test (-) - Dysphagia Impressions/Plan Swallowing Skills: WF Dysphagia Impressions: No Impairment *Silent aspiration: cannot be R/O at bedside Recommendations: Other (Pt to practice reading and speaking slowly with exaggerated pronunciation. OME) - Recommendations Diet Consistency: Other (Very soft, easy to chew) Medication Administration: Whole with water Liquids: Thin Liquids
--- NOTE | 2018-06-10 10:52 | ECHO ---
Name: ADWOA JACKSON Exam:Adult Echocardiogram Study Date: 06/10/2018 08:07 AM Age: 52 yrs Reason For Study: DIZZINESS Height: 69 in Weight: 179 lb BSA: 2.0 m2 MMode/2D Measurements & Calculations IVSd: 0.84 cm Ao root diam: 2.8 cm LVIDd: 5.1 cm LA dimension: 3.7 cm LVIDs: 3.5 cm LVPWd: 0.91 cm EDV(Teich): 124.1 ml ESV(Teich): 50.5 ml Doppler Measurements & Calculations MV E max rodrigo: 74.2 cm/sec AI P1/2t: 1176 msec MV A max rodrigo: 64.5 cm/sec MV E/A: 1.2 MV dec time: 0.39 sec AI max rodrigo: 333.9 cm/sec MR max rodrigo: 324.3 cm/sec AI max P.6 mmHg MR max P.1 mmHg AI dec slope: 83.1 cm/sec2 Med Peak E' Rodrigo: 5.7 cm/sec PI Vmax: 161.5 cm/sec Med E/e': 13.1 Lat Peak E' Rodrigo: 14.1 cm/sec Lat E/e': 5.2 Procedure The study was technically difficult with many images being suboptimal in quality. Left Ventricle The left ventricle is normal in size. Left ventricular systolic function is borderline reduced. Eject ion Fraction = 50-55%. Left Ventricular Filling pattern is normal for age. Regional wall motion abnormali ties cannot be excluded due to limited visualization. Right Ventricle The right ventricle is normal in size and function. A moderator band is seen in the right ventricle. Atria Normal left and right atrial size and function. Mitral Valve There is mild mitral valve thickening. The mitral valve is grossly normal. There is trace mitral regurgitation. Tricuspid Valve The tricuspid valve is not well visualized, but is grossly normal. There is trace tricuspid regurgita tion. There was insufficient TR detected to calculate RV systolic pressure. Aortic Valve The aortic valve opens well. The aortic valve is trileaflet. Trace to mild aortic regurgitation. Pulmonic Valve The pulmonic valve is not well visualized. Trace pulmonic valvular regurgitation. Great Vessels The aortic root is normal size. Pericardium/Pleura There is no pericardial effusion. Interpretation Summary There is no comparison study available. No cardiac source of emboli noted. There is trace mitral regurgitation. Trace pulmonic valvular regurgitation. Left ventricular systolic function is borderline reduced. The right ventricle is normal in size and function. Ejection Fraction = 50-55%. There is trace tricuspid regurgitation. Artem Cartwright MD 06/10/2018 10:49 AM
--- NOTE | 2018-06-10 13:11 | DS ---
Physical Exam: SUBJECTIVE: Patient seen and examined. He is feeling well, no current complaints of dizziness, fever, sob, cp, numbness and weakness, and daughter at bedside. OBJECTIVE: Vital Signs Period Temp Pulse Resp BP Sys/Dewey Pulse Ox Last 24 Hr 97.3 F-98.3 F 60-75 18-20 118-145/71-86 100 PE Neuro: alert, awake, cn 2-12intact, slight dysarthria , left facial droop, 5/5 motor, sensory Heent: no teeth Pulm: CTAB CV: s1 s2 bradycardia no mrg Abd: s nt nd + bs Ext: no le edema, no gait instability Laboratory Results - last 24 hr 06/09/18 06/09/18 06/10/18 16:56 21:50 06:15 WBC 7.9 RBC 5.15 Hgb 14.9 Hct 46.4 MCV 90.0 MCH 28.8 MCHC 32.0 RDW 14.1 Plt Count 178 MPV 10.2 Absolute Neuts (auto) 3.9 Neutrophils % 49.3 Lymphocytes % 38.8 D Monocytes % 9.1 Eosinophils % 2.1 Basophils % 0.7 Nucleated RBC % 0 Sodium Potassium Chloride Carbon Dioxide Anion Gap BUN Creatinine Creat Clearance w eGFR POC Glucometer 196 143 Random Glucose Calcium Total Bilirubin AST ALT Alkaline Phosphatase Total Protein Albumin 06/10/18 06/10/18 06/10/18 06:15 06:20 11:31 WBC RBC Hgb Hct MCV MCH MCHC RDW Plt Count MPV Absolute Neuts (auto) Neutrophils % Lymphocytes % Monocytes % Eosinophils % Basophils % Nucleated RBC % Sodium 139 Potassium 4.3 Chloride 103 Carbon Dioxide 27 Anion Gap 9 BUN 13 Creatinine 1.1 Creat Clearance w eGFR > 60 POC Glucometer 177 296 Random Glucose 185 H Calcium 9.1 Total Bilirubin 0.7 AST 25 ALT 44 Alkaline Phosphatase 83 Total Protein 7.7 Albumin 3.6 HOSPITAL COURSE: Date of Admission:06/08/18 Date of Discharge: 06/10/18 Minutes to complete discharge: 37 Discharge Summary Reason For Visit: SLURRED SPEECH Current Active Problems Slurred speech (Acute) Hospital Course: Initial Hospital Course: Briefly, this 52 year old male with pmhx of HTN, DM II, active smoker presented to the ED with his for c/o of slurred speech, left arm weakness, left facial/neck numbness that began 5 days ago. Patient and did not seek immediate medical attention as they are uninsured and only came to the hospital on the advice of their son who noted that patient was much weaker. Pt not taking medications secondary to lack of insurance Imaging: - Brain mri 06/08: 1. multiple small acute non hemorrhagic infarctions right temporal and right parietal lobes with no evidence of underlying neoplasm. 2. no evidence of acute intracerebral hemorrhage, subdural fluid collection or hyrdrocephalus. 3. few benign non specific are of gliosis in the white matter of both cerebral hemispheres in the perventicular distribution which may be sequela of demyelination or old small vessel infarcts. -carotid doppler: no evidence of high grade stenosis or occlusion. mild carotid arterial stenosis less than 50%. Subsequent Hospital Course/Progress Note/DC summary: Plan: 1. 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 PT will follow up with Neurology this week for continued work up and referral to [facility] for Neuroradiology referral. No vascular interventions at this time - Home with ASA, lipitor 80mg HS - Started toprol 50mg daily - Started cozaar - ECHO LVSF borderline reduced, ef 50-55% 2. HTN - Meds above 3. DM II - Pt aware of diagnosis, metformin prescribed along with counselling on diet and exercise, pt aware 4. Smoking - Nicotine patch, cessation counseling completed Dispo: - Home with above meds, plan, and follow up - Pt and family aware and agree to above plan Condition: Stable - Instructions Diet, Activity, Other Instructions: Please return to the ED for any new, persistent, or worsening symptoms. Follow up with your PCP in 1 week. (referral enclosed) Follow up with Neurology Dr. Miranda (referral enclosed) this week for continued work up and referral to [facility] for neuroradiology Take new medications as directed Referrals: Brigido Miranda MD [Staff Physician] - Neftaly Mcconnell MD [Staff Physician] - Patricia Nowak MD [Staff Physician] - Disposition: HOME - Home Medications Comprehensive Discharge Medication List: Ambulatory Orders Aspirin Coated [Ecotrin -] 81 mg PO DAILY #30 tablet.ec 06/10/18 Atorvastatin Ca [Lipitor] 80 mg PO HS #30 tablet 06/10/18 Losartan Potassium [Cozaar -] 25 mg PO DAILY #30 tablet 06/10/18 Metoprolol Succinate [Toprol XL -] 50 mg PO DAILY #30 tab.sr.24h 06/10/18 Nicotine Patch [Nicoderm Patch -] 1 patch TD DAILY #30 patch 06/10/18 metFORMIN HCL [Metformin HCl] 500 mg PO BID #60 tablet 06/10/18 This patient is new to me today: Yes Date on this admission: 06/10/18 Emergency Visit: Yes ED Registration Date: 06/08/18 Care time: The patient presented to the Emergency Department on the above date and was hospitalized for further evaluation of their emergent condition. Critical Care patient: No - Discharge Referral Referred to [facility] No
[2018-06-10 14:31] VITALS: BP 117/70; PULSE 58; TEMP 98.4
[2018-06-11] MEDS ORDERED: ENOXAPARIN NA (PORCINE) 40 MG/0.4 ML DISP.SYRIN SQ SCH (10:00)
== END 2018-06-10 14:28 | disposition home or self-care (01) | DRG 45 ==
LOC: JER 08:05 → JERBED 11:29 → J4S 13:05
PROVIDERS: ADMIT Internal Medicine; ATTEND Nurse Practitioner Acute Care
DX: I63.9 Cerebral infarction, unspecified (principal); R47.81 Slurred speech; I10 Essential (primary) hypertension; E11.9 Type 2 diabetes mellitus without complications; F17.210 Nicotine dependence, cigarettes, uncomplicated; R29.701 NIHSS score 1; G81.94 Hemiplegia, unspecified affecting left nondominant side; I65.29 Occlusion and stenosis of unspecified carotid artery
CPT/HCPCS: 36415; 70450-TC; 70544-TC; 70551-TC; 71045-TC-FY; 80053; 80061; 81003; 82465; 82550; 82962; 83036; 83718; 83721; 83735; 84478; 84484; 85025; 85610; 86850; 86900; 86901; 93005; 93010; 93306-TC; 93880-TC; 97116-GP; 97161-GP; 99283-25; J7030

== ENCOUNTER 2022-08-04 12:07 | Emergency (ER) | payer OTHER ==
[2022-08-04 12:21] VITALS: BP 158/86; PULSE 96; RESP 18; TEMP 98.1; BMI 26.6
[2022-08-04 12:59] LABS: EOS % 0.5 % (0-4.5); HEMATOCRIT 48.5 % (35.4-49); LYMPH % 43.4 % (8-40); MCH 28.6 pg (25.7-33.7); MEAN CELL VOLUME 86.8 fl (80-96); MEAN PLT VOLUME 8.4 fl (7.5-11.1); MONO % 8.8 % (3.8-10.2); NEUT % 46.3 % (42.8-82.8); PLATELET COUNT 200 10^3/uL (134-434); RBC 5.59 M/mm3 (4.00-5.60); RDW 13.6 % (11.9-15.9)
[2022-08-04 13:05] LABS: INR 0.98 (0.83-1.09); PROTHROMBIN TIME (PATIENT) 11.3 SEC (9.7-13.0)
[2022-08-04 13:08] LABS: ACTIVATED PTT 35.8 SECONDS (25.2-36.5)
[2022-08-04 13:22] LABS: CHLORIDE 97 mmol/L (98-107); SODIUM 133 mmol/L (136-145)
[2022-08-04 13:27] LABS: ALBUMIN 4.1 g/dl (3.4-5.0); ANION GAP 10 MMOL/L (8-16); BLOOD UREA NITROGEN 9.9 mg/dL (7-18); CALCIUM 9.5 mg/dL (8.5-10.1); CO2 25 mmol/L (21-32); GLUCOSE,RANDOM 306 mg/dL (74-106)
[2022-08-04 13:30] LABS: SGPT/ALT 81 U/L (13-61)
[2022-08-04 13:31] LABS: SGOT/AST 54 U/L (15-37)
[2022-08-04 13:32] LABS: BILIRUBIN,TOTAL 0.3 mg/dL (0.2-1); TOT PROT 8.6 g/dl (6.4-8.2)
[2022-08-04 13:33] LABS: ALK PHOS 75 U/L (45-117)
[2022-08-04] MEDS ORDERED: ASPIRIN 81 MG CHEWABLE TABLETS PO ONE (14:18)
[2022-08-04] MEDS ORDERED: ATORVASTATIN CA 80 MG TABLET (FP) PO ONE (14:19)
[2022-08-04] MEDS ORDERED: ATORVASTATIN CA 80 MG TABLET (FP) ONE (14:44)
[2022-08-04] MEDS ORDERED: ASPIRIN 81 MG CHEWABLE TABLETS ONE (14:44)
== END 2022-08-04 15:03 | disposition left against medical advice (07) ==
LOC: JER 12:07
DX: G45.9 Transient cerebral ischemic attack, unspecified (principal)
CPT/HCPCS: 36415; 70450-TC; 70496-TC; 70498-TC; 71045-TC-FY; 80053; 80307; 82550; 82962; 84484; 85025; 85610; 85730; 86850; 86900; 86901; 93005; 93010; 99285-25; Q9967

== ENCOUNTER 2023-12-25 09:18 | Observation (INO) | payer BC, OTHER ==
[2023-12-25 09:32] VITALS: BMI 25.1
[2023-12-25 10:31] LABS: VENOUS BASE EXCESS 1.1 mmol/L (-2-2); VENOUS O2 SATURATION 29.9 % (70-80); VENOUS PH 7.382 (7.310-7.410)
[2023-12-25 10:33] LABS: BASO % 1.3 % (0-2.0); EOS % 0.7 % (0-4.5); HEMATOCRIT 46.4 % (35.4-49); LYMPH % 41.4 % (8-40); MCH 28.8 pg (25.7-33.7); MCHC 32.3 g/dl (32.0-35.9); MEAN CELL VOLUME 89.2 fl (80-96); MEAN PLT VOLUME 8.2 fl (7.5-11.1); MONO % 9.9 % (3.8-10.2); NEUT % 46.7 % (42.8-82.8); PLATELET COUNT 205 10^3/uL (134-434); RDW 13.9 % (11.9-15.9); WHITE BLOOD COUNT 5.1 K/mm3 (4.0-10.0)
[2023-12-25] MEDS ORDERED: amLODIPine BESYLATE 2.5 MG TABLET (FP) ONE (10:53)
[2023-12-25] MEDS ORDERED: MECLIZINE HCL 25 MG TABLET (FP) ONE (10:53)
[2023-12-25 11:00] LABS: POTASSIUM 4.2 mmol/L (3.5-5.1)
[2023-12-25 11:01] LABS: CALCIUM 9.1 mg/dL (8.5-10.1)
[2023-12-25 11:03] LABS: ALBUMIN 3.6 g/dl (3.4-5.0); BLOOD UREA NITROGEN 9.5 mg/dL (7-18); MAGNESIUM 1.8 mg/dL (1.8-2.4)
[2023-12-25 11:07] LABS: BILIRUBIN,TOTAL 0.4 mg/dL (0.2-1); TOT PROT 7.9 g/dl (6.4-8.2)
[2023-12-25] MEDS: amLODIPine BESYLATE 2.5 MG TABLET (FP) PO ONE (11:07)
[2023-12-25] MEDS: MECLIZINE HCL 25 MG TABLET (FP) PO ONE (11:07)
[2023-12-25] MEDS ORDERED: FOLIC ACID 1 MG TABLET (FP) ONE (15:50)
[2023-12-25] MEDS ORDERED: ASCORBIC ACID 500 MG TABLET (FP) ONE (15:51)
[2023-12-25] MEDS ORDERED: ENOXAPARIN NA (PORCINE) 40 MG/0.4 ML DISP.SYRIN SQ ONE (15:51)
[2023-12-25] MEDS ORDERED: ASPIRIN 81 MG CHEWABLE TABLETS ONE (15:51)
[2023-12-25] MEDS: ASPIRIN COATED 81 MG TABLET.EC PO SCH (15:54)
[2023-12-25] MEDS: THIAMINE HCL 200 MG/2 ML VIAL IVPB ONE (15:54)
[2023-12-25] MEDS: ENOXAPARIN NA (PORCINE) 40 MG/0.4 ML DISP.SYRIN SQ SCH (15:54)
[2023-12-25] MEDS: FOLIC ACID 1 MG TABLET (FP) PO SCH (15:54)
[2023-12-25] MEDS ORDERED: INSULIN (NOVOLOG) ASPART 100 UNITS/ML 10ML VIAL ONE (21:03)
[2023-12-25] MEDS: INSULIN ASPART SLIDING SCALE (NOVOLOG) 1 VIAL SQ SCH (21:21)
[2023-12-25] MEDS: NICOTINE 7 MG/24 HOURS TOPICAL PATCH TD SCH (21:21)
[2023-12-25] MEDS: ATORVASTATIN CA 80 MG TABLET (FP) PO SCH (21:23)
[2023-12-26 07:39] LABS: HEMATOCRIT 44.2 % (35.4-49); HEMOGLOBIN 14.5 GM/dL (11.7-16.9); MCHC 32.8 g/dl (32.0-35.9); MEAN CELL VOLUME 88.3 fl (80-96); MEAN PLT VOLUME 8.9 fl (7.5-11.1); PLATELET COUNT 193 10^3/uL (134-434); RBC 5.01 M/mm3 (4.00-5.60); RDW 13.9 % (11.9-15.9); WHITE BLOOD COUNT 6.4 K/mm3 (4.0-10.0)
[2023-12-26 07:50] LABS: POTASSIUM 3.7 mmol/L (3.5-5.1)
[2023-12-26 08:21] LABS: BLOOD UREA NITROGEN 9.4 mg/dL (7-18)
[2023-12-26 08:25] LABS: PHOSPHOROUS 3.5 mg/dL (2.5-4.9)
[2023-12-26 08:26] LABS: CREATININE 0.9 mg/dL (0.55-1.3)
[2023-12-26] MEDS: THIAMINE HCL 100 MG TABLET (FP) PO SCH (09:49)
[2023-12-26] MEDS: LOSARTAN POTASSIUM 25 MG TABLET PO SCH (09:49)
[2023-12-26] MEDS: amLODIPine BESYLATE 2.5 MG TABLET (FP) PO SCH (09:49)
[2023-12-26] MEDS: FOLIC ACID 1 MG TABLET (FP) PO SCH (09:49)
[2023-12-26] MEDS ORDERED: THIAMINE HCL 200 MG/2 ML VIAL IVPB SCH (10:00)
[2023-12-26 14:55] VITALS: BP 132/72; PULSE 84; RESP 18; TEMP 99
[2023-12-26] MEDS ORDERED: MECLIZINE HCL 25 MG TABLET (FP) PO PRN (17:47)
== END 2023-12-26 18:50 | disposition home or self-care (01) ==
LOC: JER 09:18 → JERBED 11:29 → J4W 17:35
PROVIDERS: ADMIT Internal Medicine; ATTEND Nurse Practitioner Acute Care
PROC: 3E023GC Introduction of Other Therapeutic Substance into Muscle, Percutaneous Approach (ICD-10-PCS; principal; 2023-12-25)
PROC: 3E013VG Introduction of Insulin into Subcutaneous Tissue, Percutaneous Approach (ICD-10-PCS; 2023-12-25)
PROC: 3E033GC Introduction of Other Therapeutic Substance into Peripheral Vein, Percutaneous Approach (ICD-10-PCS; 2023-12-25)
DX: R42 Dizziness and giddiness (principal); E86.0 Dehydration; E51.2 Wernicke's encephalopathy; F10.99 Alcohol use, unspecified with unspecified alcohol-induced disorder; E11.9 Type 2 diabetes mellitus without complications; I10 Essential (primary) hypertension; Z87.898 Personal history of other specified conditions; I25.2 Old myocardial infarction; Z86.73 Personal history of transient ischemic attack (TIA), and cerebral infarction without residual deficits; F17.200 Nicotine dependence, unspecified, uncomplicated; R47.81 Slurred speech; I65.21 Occlusion and stenosis of right carotid artery
CPT/HCPCS: 0241U-QW; 36415; 70450-TC; 70551-TC; 71045-TC-FY; 80048; 80053; 80307; 82010; 82607; 82803; 82962; 83735; 84100; 84443; 84484; 85025; 85027; 97116-GP; 97161-GP; 99285-25; G0378